=== PATIENT | female | born 1975 | race Native Hawaiian/Other Pacific Islander ===

== ENCOUNTER 2017-01-23 22:16 | Emergency (ER) | payer SELFPAY ==
[2017-01-23 22:47] VITALS: BP 153/91
[2017-01-23 23:45] LABS: Alanine Aminotransferase 12 units/L (7-56); Albumin 4.3 g/dL (3.9-5); Albumin/Globulin Ratio 1.4 %; Alkaline Phosphatase 68 units/L (35-129); Anion Gap 19 mmol/L; Basophils % (Auto) 0.5 % (0.0-1.8); Blood Urea Nitrogen 7 mg/dL (7-17); Calcium 8.9 mg/dL (8.4-10.2); Carbon Dioxide 22 mmol/L (22-30); Chloride 96.5 mmol/L (98-107); Eosinophils % (Auto) 1.1 % (0.0-4.3); Glucose 115 mg/dL (65-100); Hematocrit 38.2 % (30.3-42.9); Hemoglobin 12.6 gm/dl (10.1-14.3); Lipase 24 units/L (13-60); Mean Corpuscular HGB Conc 33 % (30-34); Mean Corpuscular Hemoglobin 29 pg (28-32); Mean Corpuscular Volume 89 fl (79-97); Platelet Count 206 K/mm3 (140-440); Potassium 3.5 mmol/L (3.6-5.0); Red Cell Distribution Width 14.6 % (13.2-15.2); Sodium 134 mmol/L (137-145); Total Protein 7.4 g/dL (6.3-8.2); White Blood Count 12.3 K/mm3 (4.5-11.0)
[2017-01-24 02:26] LABS: Bacteria,Urine 1+ /HPF (Negative); Bilirubin,Urine NEG (Negative); Blood,Urine NEG (Negative); Ketones,Urine 20 mg/dL (Negative); Leukocyte Esterase,Urine NEG (Negative); Mucus,Urine FEW /HPF; Nitrite,Urine NEG (Negative); Urobilinogen,Urine < 2.0 mg/dL (<2.0)
--- NOTE | 2017-01-24 19:30 | ED Elopement Review ---
ED Pt Elopement review - Results review Lab results: Laboratory Tests 01/23/17 01/23/17 01/23/17 23:01 23:01 Unknown WBC 12.3 H RBC 4.30 Hgb 12.6 Hct 38.2 MCV 89 MCH 29 MCHC 33 RDW 14.6 Plt Count 206 Lymph % (Auto) 17.4 [place] % (Auto) 4.8 Eos % (Auto) 1.1 Baso % (Auto) 0.5 Lymph # 2.1 [place] # 0.6 Eos # 0.1 Baso # 0.1 Seg Neutrophils % 76.2 H Seg Neutrophils # 9.4 H Sodium 134 L Potassium 3.5 L Chloride 96.5 L Carbon Dioxide 22 Anion Gap 19 BUN 7 Creatinine 0.4 L Estimated GFR > 60 BUN/Creatinine Ratio 17.50 Glucose 115 H Calcium 8.9 Total Bilirubin 0.20 AST 13 ALT 12 Alkaline Phosphatase 68 Total Protein 7.4 Albumin 4.3 Albumin/Globulin Ratio 1.4 Lipase 24 Urine Color Yellow Urine Turbidity Clear Urine pH 6.0 Ur Specific [place] 1.018 Urine Protein 30 mg/dl Urine Glucose (UA) Neg Urine Ketones 20 Urine Blood Neg Urine Nitrite Neg Ur Reducing Substances Not Reportable Urine Bilirubin Neg Urine Ictotest Not Reportable Urine Urobilinogen < 2.0 Ur Leukocyte Esterase Neg Urine WBC (Auto) 3.0 Urine RBC (Auto) 5.0 U Epithel Cells (Auto) 7.0 Urine Bacteria (Auto) 1+ Urine Mucus Few Urine HCG, Qual Positive A - Call Back decision Pt Call Back Decision: Call pt to return to ED JIM ( patient with abdominal pain needs to come back to the ER to exclude ectopic )
== END 2017-01-23 23:00 | disposition left against medical advice (07) ==
LOC: ED 22:16
DX: R10.9 Unspecified abdominal pain (principal); Z53.21 Procedure and treatment not carried out due to patient leaving prior to being seen by health care provider
CPT/HCPCS: 36415; 80053; 81001; 81025; 83690; 85025